=== PATIENT | female | born 1955 | race Caucasian/White ===

== ENCOUNTER 2021-02-26 19:33 | Emergency (ER) | payer OTHER ==
[~2021-02-26] VITALS: Ht 165.1 cm; Wt 81.6 kg
[~2021-02-26 19:33] MED LIST: CORTISONE14 GM; RAMIPRIL5 MG; SYNTHROID75 MCG
== END 2021-02-26 22:48 | disposition home or self-care (01) ==
LOC: ER 19:33
DX: S99.821A Other specified injuries of right foot, initial encounter (principal); W10.8XXA Fall (on) (from) other stairs and steps, initial encounter; Y93.89 Activity, other specified; Y92.018 Other place in single-family (private) house as the place of occurrence of the external cause; Y99.8 Other external cause status

== ENCOUNTER 2024-02-22 03:55 | Emergency (ER) | payer OTHER ==
[~2024-02-22] VITALS: Ht 165.1 cm; Wt 90.7 kg
[2024-02-22] MEDS ORDERED: propanolol (04:08)
[2024-02-22] MEDS ORDERED: NORVASC2.5 MG PO (04:09)
[2024-02-22] MEDS ORDERED: LASIX20 MG (04:10)
[2024-02-22] MEDS ORDERED: KETOROLAC TROMETHAMINE 60 MG VIAL IM STA (04:35)
[2024-02-22] MEDS ORDERED: KETOROLAC TROMETHAMINE 60 MG VIAL IM ONE (04:38)
== END 2024-02-22 05:39 | disposition home or self-care (01) ==
LOC: ER 03:56
DX: S52.592A Other fractures of lower end of left radius, initial encounter for closed fracture (principal); S50.12XA Contusion of left forearm, initial encounter; S90.02XA Contusion of left ankle, initial encounter; W18.39XA Other fall on same level, initial encounter; Y93.89 Activity, other specified; Y92.018 Other place in single-family (private) house as the place of occurrence of the external cause; Z88.2 Allergy status to sulfonamides
CPT/HCPCS: 73090; 73560; 73600; 96372; 99283; J1885

== ENCOUNTER 2024-02-27 08:12 | Outpatient (CLI) | payer OTHER ==
[~2024-02-27 08:12] MED LIST changes: +LASIX20 MG; +NORVASC2.5 MG PO; +propanolol
== END 2024-02-27 08:19 | disposition home or self-care (01) ==
LOC: SONOGRAMA 08:12
PROVIDERS: ATTEND Orthopaedic Surgery
DX: S52.532A Colles' fracture of left radius, initial encounter for closed fracture (principal); M25.531 Pain in right wrist; M79.672 Pain in left foot; G57.62 Lesion of plantar nerve, left lower limb

== ENCOUNTER 2024-03-05 08:01 | Outpatient (CLI) | payer OTHER | END 2024-03-05 08:04 | disposition home or self-care (01) | LOC: RAD 08:01 | PROVIDERS: ATTEND Orthopaedic Surgery | DX: S52.532A Colles' fracture of left radius, initial encounter for closed fracture (principal); M25.531 Pain in right wrist; M79.672 Pain in left foot; G57.62 Lesion of plantar nerve, left lower limb ==

== ENCOUNTER 2024-06-17 09:44 | Outpatient (CLI) | payer OTHER | END 2024-06-17 09:55 | disposition home or self-care (01) | LOC: RAD 09:44 | PROVIDERS: ATTEND Podiatrist Foot Surgery | DX: G56.03 Carpal tunnel syndrome, bilateral upper limbs (principal); M20.41 Other hammer toe(s) (acquired), right foot; M20.42 Other hammer toe(s) (acquired), left foot ==

== ENCOUNTER 2024-12-10 10:58 | Emergency (ER) | payer OTHER ==
[~2024-12-10] VITALS: Ht 162.6 cm; Wt 90.7 kg
[2024-12-10] MEDS ORDERED: PROTONIX40 MG (11:25)
[2024-12-10] MEDS ORDERED: SERTRALINE HCL50 MG (11:28)
[2024-12-10] MEDS ORDERED: INDERAL XL80 MG (11:29)
[2024-12-10] MEDS ORDERED: TRAMADOL HCL 50 MG TABLET PO ONE (11:45)
[2024-12-10] MEDS ORDERED: TRIAMCINOLONE ACETONIDE 40 MG/ML VIAL IM ONE (11:45)
[2024-12-10] MEDS ORDERED: TRIAMCINOLONE ACETONIDE 40 MG/ML VIAL ONE (12:15)
== END 2024-12-10 14:04 | disposition home or self-care (01) ==
LOC: ER 10:58
DX: S32.010A Wedge compression fracture of first lumbar vertebra, initial encounter for closed fracture (principal); W19.XXXA Unspecified fall, initial encounter; Y93.89 Activity, other specified; Y92.89 Other specified places as the place of occurrence of the external cause; Y99.9 Unspecified external cause status; I10 Essential (primary) hypertension; Z88.8 Allergy status to other drugs, medicaments and biological substances; Z91.013 Allergy to seafood
CPT/HCPCS: 72070; 72100; 96372; 99283; J3301

== ENCOUNTER 2024-12-13 04:31 | Emergency (ER) | payer OTHER ==
[~2024-12-13] VITALS: Ht 165.1 cm; Wt 90.7 kg
[~2024-12-13 04:31] MED LIST changes: +INDERAL XL80 MG; +PROTONIX40 MG; +SERTRALINE HCL50 MG
[2024-12-13] MEDS ORDERED: ORPHENADRINE CITRATE 30 MG/ML AMPUL IM STA (06:31)
[2024-12-13] MEDS ORDERED: KETOROLAC TROMETHAMINE 60 MG VIAL IM STA (06:31)
[2024-12-13] MEDS ORDERED: CLONAZEPAM 1 MG TABLET PO STA (06:33)
[2024-12-13] MEDS ORDERED: KETOROLAC TROMETHAMINE 60 MG VIAL IM ONE (06:40)
[2024-12-13] MEDS ORDERED: ORPHENADRINE CITRATE 30 MG/ML AMPUL ONE (06:40)
[2024-12-16] MEDS ORDERED: AMLODIPINE-OLM1 EAC2 PO (08:22)
[2024-12-16] MEDS ORDERED: ACTONEL35 MG PO (08:24)
== END 2024-12-13 06:56 | disposition home or self-care (01) ==
LOC: ER 04:36
DX: F41.1 Generalized anxiety disorder (principal); M54.50 Low back pain, unspecified; F41.9 Anxiety disorder, unspecified; Z88.1 Allergy status to other antibiotic agents; Z88.8 Allergy status to other drugs, medicaments and biological substances

== ENCOUNTER 2024-12-14 18:06 | Emergency (ER) | payer OTHER ==
[~2024-12-14] VITALS: Ht 162.6 cm; Wt 90.7 kg
[2024-12-14] MEDS ORDERED: MORPHINE SULFATE 4 MG/ML CARTRIDGE IV ONE (20:00)
[2024-12-14] MEDS ORDERED: ACETAMINOPHEN WITH CODEINE 1 UDTAB TABLET PO ONE (20:15)
[2024-12-15] MEDS ORDERED: MORPHINE SULFATE 4 MG/ML VIAL IV STA (01:49)
[2024-12-15] MEDS ORDERED: NIFEDIPINE 10 MG CAPSULE PO ONE (01:59)
[2024-12-15] MEDS ORDERED: NIFEDIPINE 10 MG CAPSULE PO STA (02:01)
[2024-12-16] MEDS ORDERED: AMLODIPINE-OLM1 EAC2 PO (08:22)
[2024-12-16] MEDS ORDERED: ACTONEL35 MG PO (08:24)
== END 2024-12-15 02:31 | disposition home or self-care (01) ==
LOC: ER 18:13
DX: S32.010A Wedge compression fracture of first lumbar vertebra, initial encounter for closed fracture (principal); W19.XXXA Unspecified fall, initial encounter; Y93.9 Activity, unspecified; Y92.89 Other specified places as the place of occurrence of the external cause; Y99.9 Unspecified external cause status; I10 Essential (primary) hypertension; Z88.8 Allergy status to other drugs, medicaments and biological substances
CPT/HCPCS: 96365; 99282; J2270

== ENCOUNTER → 2024-12-16 | Emergency (ER) | payer OTHER ==
[~2024-12-16] VITALS: Ht 152.4 cm; Wt 90.7 kg
[~2024-12-16] MED LIST changes: +ACTONEL35 MG PO; +AMLODIPINE-OLM1 EAC2 PO; +MORPHINE SULFATE 4 MG/ML VIAL IV ONE; +MORPHINE SULFATE 4 MG/ML VIAL IV STA; +ORPHENADRINE CITRATE 30 MG/ML AMPUL IM ONE; +ORPHENADRINE CITRATE 30 MG/ML AMPUL ONE
== END | disposition home or self-care (01) ==
LOC: ER 08:00
DX: S32.000A Wedge compression fracture of unspecified lumbar vertebra, initial encounter for closed fracture (principal); W19.XXXA Unspecified fall, initial encounter; Y93.89 Activity, other specified; Y92.89 Other specified places as the place of occurrence of the external cause; Y99.9 Unspecified external cause status; G89.11 Acute pain due to trauma; I10 Essential (primary) hypertension; E03.8 Other specified hypothyroidism; Z88.1 Allergy status to other antibiotic agents
CPT/HCPCS: 72131; 96365; 96372; 99284; J2270; J2360